=== PATIENT | female | born 1980 | race Asian ===

== ENCOUNTER 2024-07-03 04:37 | Emergency (ER) | payer OTHER, SELFPAY ==
[2024-07-03 04:38] VITALS: BMI 31.8
[2024-07-03 04:51] VITALS: BP 125/84; PULSE 85; RESP 17; TEMP 36.4; O2SAT 96
--- NOTE | 2024-07-03 04:58 | XR_ITS ---
Examination: CT abdomen with intravenous contrast CT pelvis with intravenous contrast 2-D coronal reconstructions 2-D sagittal reconstructions Date and time of exam:July 03, 2023 at 0734 hrs. Comparison 03/03/2022. Indications: Lower abdominal pain and constipation beginning 3 days ago, history small bowel obstruction.. CTDI: vol (mGy) 9.61 DLP: (mGycm) 533 Technique: Multiple axial sections of the abdomen and pelvis have been obtained. 64 slice high-resolution scanner used. 3 mm axial sections have been obtained, post intravenous injection 60 cc Isovue-370. 2-D sagittal, coronal reconstructions obtained. Low dose protocols were performed. One or more of the following dose reduction techniques were used; automated exposure control, adjustment of the mA and/or KV according to patient size, use of iterative reconstruction technique. Findings: Splenic cyst again noted Fatty infiltration throughout the liver Contracted gallbladder No pancreatic mass. Moderate bilateral renal parenchymal scar formation. Normal appendix. Multiple fluid distended small bowel loops, no free air No hernia defect 3 cm left ovarian cyst. Urinary bladder shows mild wall thickening The osseous structures are intact. Impression: Small bowel obstruction pattern Recommend Gastrografin small bowel series follow-up
--- NOTE | 2024-07-03 04:58 | PD.EDRME ---
Rapid Medical Screening Exam RME Arrival date/time: 07/03/24 04:37 43 year old female present to Ed for c/o of abd pain for 1 day , hx of sbo I have greeted and performed a focused initial assessment of this patient. A comprehensive ED assessment and evaluation of the patient, analysis of all test results, and completion of the medical decision making process will be conducted by additional ED providers. Chief Complaint: Abdominal Pain Time Seen by Provider: 07/03/24 04:39 Vital signs: Vital Signs Temperature 97.5 F 07/03/24 04:51 Pulse Rate 85 07/03/24 04:51 Respiratory Rate 17 07/03/24 04:51 Blood Pressure 125/84 07/03/24 04:51 Pulse Oximetry (%) 96 07/03/24 04:51 Oxygen Delivery Method Room Air 07/03/24 04:51
[2024-07-03 06:12] LABS: Basophils # (Auto) 0.1 Thou/mm3 (0.0-0.2); Basophils % (Auto) 0 % (0-2.5); Eosinophils # (Auto) 0.2 Thou/mm3 (0.0-0.5); Eosinophils % (Auto) 1 % (0-10); Hematocrit 42.6 % (36.0-46.0); Hemoglobin 14.6 g/dL (12.0-16.0); Immature Granulocytes % (Auto) 1 % (0-0); Immature Granulocytes Auto 0.13 Thou/mm3 (0.00-0.00); Lymphocytes # (Auto) 3.3 Thou/mm3 (1.0-4.8); Lymphocytes % (Auto) 18 % (10-50); Mean Corpuscular HGB Conc 34.3 g/dl (31.0-37.0); Mean Corpuscular Hemoglobin 29.1 pg (25.0-35.0); Mean Corpuscular Volume 85 fL (80-100); Monocytes # (Auto) 1.1 Thou/mm3 (0.0-0.8); Monocytes % (Auto) 6 % (0-12); Neutrophils # (Auto) 13.3 Thou/mm3 (1.8-7.7); Neutrophils % (Auto) 74 % (37-80); Nucleated Red Blood Cell % 0 /100 WBC (0); Platelet Count 313 Thou/mm3 (140-440); RDW Standard Deviation 35.6 fL (36.4-46.3); Red Blood Count 5.01 Miln/mm3 (4.00-5.20); White Blood Count 18.1 Thou/mm3 (3.6-11.0)
[2024-07-03 06:34] LABS: Alanine Aminotransferase 13 U/L (10-49); Albumin, Serum 4.7 gm/dL (3.5-5.0); Albumin/Globulin Ratio 1.3 (1.2-2.2); Alkaline Phosphatase 66 U/L (46-116); Anion Gap 9 (7-16); Aspartate Amino Transferase 11 U/L (0-34); BUN/Creatinine Ratio 21 Ratio (12-20); Blood Urea Nitrogen 21 mg/dL (9-23); Calcium 10.1 mg/dL (8.3-10.6); Calcium (Corrected) 10.1 mg/dL (8.5-10.1); Carbon Dioxide 28.2 mMol/L (20.0-31.0); Chloride 97 mMol/L (98-107); Estimated Creatinine Clearance 71.9 mL/min (>60); Globulin 3.7 gm/dL (2.3-3.5); Glucose 278 mg/dL (74-106); Lipase 71 U/L (12-53); Osmolality,Calculated 281 (275-295); Potassium 4.1 mMol/L (3.4-5.1); Sodium 134 mMol/L (136-145); Total Protein 8.4 gm/dL (5.7-8.2); eGFR > 60 See Note
[2024-07-03 07:20] LABS: HCG,Qualitative Serum Negative
[2024-07-03 07:21] LABS: Collection Type, Urine Clean Catch
[2024-07-03 07:57] LABS: Bacteria,Urine 3+; Bilirubin,Urine Negative (Negative); Blood,Urine Negative (Negative); Clarity,Urine Clear (Clear/Hazy); Color,Urine Yellow (Lt Yel-Yel); Glucose, Urine 4+ (Negative); Hyaline Casts,Urine < 1 /hpf (0-1); Ketones,Urine Negative (Negative); Leukocyte Esterase,Urine Positive (Negative); Nitrite,Urine Positive (Negative); PH,Urine 6.5 (5.0-7.0); Protein,Urine 1+ (Neg - Trace); RBC,Urine 1 /hpf (0-3); Specific Gravity,Urine 1.024 (1.001-1.035); Squamous Epithelial Cell,Urine 2 /hpf (0-5); Urobilinogen,Urine Negative mg/dL (0.0-1.0); WBC,Urine 15 /hpf (0-5)
[2024-07-03 07:58] LABS: Culture Indicated,Urine Yes
[2024-07-03 08:02] VITALS: BP 130/89; PULSE 82; RESP 16; TEMP 36.6; O2SAT 97
--- NOTE | 2024-07-03 08:02 | EDNOTE_ITS ---
<Statement entered by Tasha Reese MD - 07/04/24 09:18> As co-signing physician, I was present and available for consult prn. I concur with the plan and care as documented by the midlevel provider. ED Abdominal Pain RME/HPI General Chief Complaint: Abdominal Pain Stated complaint: STOMACH PAIN Time seen by provider: 07/03/24 04:39 Arrival date/time: 07/03/24 04:37 43-year-old female with history significant for diabetes, hypertension currently on Ozempic presents e to the emergency department today complains of lower abdominal pain Limitations: no limitations RME / HPI RME / HPI narrative: 07/03/24 04:37 43 year old female present to Ed for c/o of abd pain for 1 day , hx of sbo I have greeted and performed a focused initial assessment of this patient. A comprehensive ED assessment and evaluation of the patient, analysis of all test results, and completion of the medical decision making process will be conducted by additional ED providers. Related Data Home Medications ?Medication ?Instructions ?Recorded ?Confirmed benazepril 20 1 tab PO QDAY 05/20/18 04/20/24 mg-hydrochlorothiazide 12.5 mg tablet glimepiride 2 mg tablet 2 mg PO BID 06/18/20 04/20/24 atorvastatin 10 mg tablet 10 mg PO DAILY 04/20/24 04/20/24 insulin glargine U-300 conc 300 26 unit subcut DAILY 04/20/24 04/20/24 unit/mL (3 mL) subcutaneous pen (Toujeo Max U-300 SoloStar) metoprolol succinate 100 mg 100 mg PO DAILY 04/20/24 04/20/24 tablet,extended release 24 hr semaglutide 2 mg/dose (8 mg/3 mL) 2 mg subcut QWEEK 04/20/24 04/20/24 subcutaneous pen injector (Ozempic) Previous Rx's ?Medication ?Instructions ?Recorded ciprofloxacin HCl 500 mg tablet 500 mg PO BID 7 days #14 tabs 07/03/24 Allergies Allergy/AdvReac Type Severity Reaction Status Date / Time No Known Allergies Allergy Verified 07/03/24 04:39 Review of Systems Review of Systems Systems Reviewed: All systems reviewed, normal except as documented Constitutional Constitutional: Reports system reviewed and no additional complaints, except as documented, Denies fever(s) and Denies headache(s) Eyes Eyes: Reports system reviewed and no additional complaints, except as documented and Denies blurry vision ENT Ears, Nose, Mouth, and Throat: Reports system reviewed and no additional complaints, except as documented, Denies headache(s), Denies nasal congestion and Denies nasal discharge Cardiovascular Cardiovascular: Reports system reviewed and no additional complaints, except as documented, Denies chest pain and Denies dyspnea Respiratory Respiratory: Reports system reviewed and no additional complaints, except as documented, Denies chest congestion, Denies cough and Denies dyspnea Gastrointestinal Gastrointestinal: Reports system reviewed and no additional complaints, except as documented, Reports abdominal pain, Reports loose stools, Denies nausea and Denies vomiting Integumentary/Breasts Skin/Breast: Reports system reviewed and no additional complaints, except as documented and Denies rash Neurologic Neurologic: Reports system reviewed and no additional complaints, except as documented, Reports as per HPI and Denies headache(s) Past Medical History Past Medical History NEUROLOGIC: Negative Neurological Disorders CARDIAC: Negative Cardiac Disorders ED Exam General Limitations: Present no limitations General appearance: Present alert and in no apparent distress Head Head exam: Present atraumatic, normocephalic and normal inspection Eye Eye exam: Present normal appearance, PERRL and EOMI; Absent conjunctival injection ENT ENT exam: Present normal exam, normal oropharynx and mucous membranes moist Neck Neck exam: Present normal inspection, full ROM and trachea midline Chest Chest inspection: Present normal inspection and symmetric chest wall rise Respiratory Respiratory exam: Present normal lung sounds bilaterally; Absent respiratory distress Cardiovascular Cardiovascular exam: Present regular rate, normal rhythm and normal heart sounds Abdominal Exam Abdominal exam: Present soft, tenderness and normal bowel sounds; Absent distention, guarding, rebound or rigidity Abdominal tenderness: Present LLQ and mild Extremities Exam Extremities exam: Present normal inspection and full ROM Back Exam Back exam: Present normal inspection and full ROM Neurological Exam Neurological exam: Present alert, oriented X3 and CN II-XII intact Psychiatric Psychiatric exam: Present normal affect and normal mood Skin Skin exam: Present warm, dry, intact and normal color Course Quality Measures none Orders Category Date Time Status CT Screening NOW Care 07/03/24 04:59 Active IV [Insert IV] STAT Care 07/03/24 04:[address] abdomen pelvis w con Stat Exams 07/03/24 04:58 Completed CBC Stat Lab 07/03/24 05:52 Completed CMP [Comprehensive Metabolic Panel] Stat Lab 07/03/24 05:52 Completed HCG,Qualitative Serum Stat Lab 07/03/24 05:52 Completed Lipase Stat Lab 07/03/24 05:52 Completed UA, C/S IF [Urinalysis, C/S if Indicated] Stat Lab 07/03/24 07:10 Completed Urine Culture Stat Lab 07/03/24 07:10 Received Vital Signs Vital signs: Vital Signs Temperature 97.5 F 07/03/24 04:51 Pulse Rate 85 07/03/24 04:51 Respiratory Rate 17 07/03/24 04:51 Blood Pressure 125/84 07/03/24 04:51 Pulse Oximetry (%) 96 07/03/24 04:51 Oxygen Delivery Method Room Air 07/03/24 04:51 O2 saturation 96% on room air within normal limits Abdominal Pain MDM MDM Narrative MDM Narrative:: 43-year-old female with history significant for diabetes, hypertension currently on Ozempic presents e to the emergency department today complains of lower abdominal pain On exam patient well-appearing patient does not appear ill or toxic in no acute distress Lab work as well as CT scan ordered by my colleague Lab work and CT scan reviewed by me UA consistent with UTI Per the radiologist patient has bowel obstruction type pattern clinically patient does not have a bowel obstruction patient has no abdominal pain has no vomiting and is passing gas and having stools Consultation: I spoke with Dr. Abdullahi general surgeon who feels patient be discharged home without treatment for this As patient has no abdominal pain no nausea no vomiting patient be discharged home at this time with a prescription for antibiotics Patient reports that she had 3 bowel movements since this happened Patient discharged home in no distress to follow-up with primary care doctor in the next 24 to 48 hours and for any worsening symptoms to return to the ER immediately Patient data External records reviewed:: [facility] previous records Clinical information provided by:: patient Social determinants that could affect healthcare access:: none Patient has the following chronic illnesses:: See history How is presenting disease/condition affected by chronic disease/condition?: exacerbated by Evaluation data The following diagnostics were reviewed and interpreted by me:: lab results and radiology exam(s) Lab and/or radiology exams considered but not ordered:: Labs and radiology obtained Interpretation Summary: Reviewed by me Medications / Prescriptions Medications or Prescriptions considered but not ordered:: Given Medication administrations:: Given Consultations Consultation(s) initiated? (list below): Yes Consultation #1 (Physician, Specialty, Details): Dr Abdullahi Diagnosis Differential diagnosis abdominal pain: abdominal pain, acute appendicitis, diverticulitis, gastroenteritis, pancreatitis and small bowel obstruction Most likely diagnosis given after review of the tests above:: Abdominal pain Admission Indicated Admission indicated?: not indicated Admission Request Was there a request for admission?: No Disposition Plan Disposition Plan: Discharge Discharge Attestation Discharge Attestation: The patient and all family members were given an opportunity to ask questions and understood the discharge instructions. Discharge instructions specifically effects, indications for sooner follow up or return to the emergency department, and the expected course of current diagnosis. Patient condition: Stable Discharge Plan Plan Patient Disposition: HOME (Self Care) Disposition Comment: Stable Prescriptions/Referrals Prescriptions/Med Rec: New ciprofloxacin HCl 500 mg tablet 500 mg PO BID 7 Days Qty: 14 0RF No Action benazepril-hydrochlorothiazide 20-12.5 mg Tablet 1 tab PO QDAY glimepiride 2 mg tablet 2 mg PO BID Patient Comments: TAKE 1 TABLET BY MOUTH TWICE DAILY atorvastatin 10 mg tablet 10 mg PO DAILY metoprolol succinate 100 mg tablet extended release 24 hr 100 mg PO DAILY Patient Comments: TAKE 1 TABLET BY MOUTH ONCE DAILY insulin glargine U-300 conc [Toujeo Max U-300 SoloStar] 300 unit/mL (3 mL) insulin pen 26 unit SUBCUT DAILY Patient Comments: INJECT 14 UNITS SUBCUTANEOUSLY ONCE DAILY Ozempic 2 mg/dose (8 mg/3 mL) pen injector 2 mg SUBCUT QWEEK Patient Comments: INJECT 2MG SUBCUTANEOUSLY ONCE A WEEK Referrals: Christiano Izaguirre MD [Primary Care Provider] - In 1 week Problem List Clinical Impression: Abdominal pain, UTI (urinary tract infection) Patient/Caregiver Discharge Instructions Education Materials: Abdominal Pain Additional Instructions: Please follow up with your primary care doctor in the next 24-48hrs for any worsening symptoms return here immediately Print Language: [place] Stand Alone Forms: Madai Award Info., Patient Portal Info Letter PA/LINE LEADER Supervising Physician PA/LINE LEADER Supervising Physician: Dr. Reese
== END 2024-07-03 09:00 | disposition home or self-care (01) ==
PROVIDERS: Nurse Practitioner Primary Care; Physician Assistant; Emergency Provider Emergency Medicine; PCP Internal Medicine
DX: N39.0 Urinary tract infection, site not specified (principal); E11.9 Type 2 diabetes mellitus without complications; I10 Essential (primary) hypertension
CPT/HCPCS: 36415; 74177; 81001; 83690; 84703; 85025; 87077; 87086; 87186; 99285; A4649; Q9967

== ENCOUNTER → 2024-07-10 | Outpatient (CLI) | payer OTHER, SELFPAY ==
[2024-07-10 07:58] LABS: Collection Type, Urine Clean Catch
[2024-07-10 08:52] LABS: Basophils # (Auto) 0.1 Thou/mm3 (0.0-0.2); Basophils % (Auto) 1 % (0-2.5); Eosinophils # (Auto) 0.3 Thou/mm3 (0.0-0.5); Eosinophils % (Auto) 3 % (0-10); Immature Granulocytes % (Auto) 1 % (0-0); Immature Granulocytes Auto 0.07 Thou/mm3 (0.00-0.00); Lymphocytes # (Auto) 4.5 Thou/mm3 (1.0-4.8); Lymphocytes % (Auto) 35 % (10-50); Mean Corpuscular HGB Conc 34.2 g/dl (31.0-37.0); Mean Corpuscular Hemoglobin 29.5 pg (25.0-35.0); Mean Corpuscular Volume 86 fL (80-100); Monocytes # (Auto) 0.7 Thou/mm3 (0.0-0.8); Monocytes % (Auto) 5 % (0-12); Neutrophils # (Auto) 7.2 Thou/mm3 (1.8-7.7); Neutrophils % (Auto) 56 % (37-80); Nucleated Red Blood Cell % 0 /100 WBC (0); Platelet Count 295 Thou/mm3 (140-440); RDW Standard Deviation 37.5 fL (36.4-46.3); White Blood Count 12.9 Thou/mm3 (3.6-11.0)
[2024-07-10 08:53] LABS: Glucose Estimated Average 212 mg/dL (80-131)
[2024-07-10 09:02] LABS: Anion Gap 11 (7-16); Blood Urea Nitrogen 16 mg/dL (9-23); Carbon Dioxide 24.9 mMol/L (20.0-31.0); Chloride 101 mMol/L (98-107); Potassium 3.8 mMol/L (3.4-5.1); Sodium 137 mMol/L (136-145)
[2024-07-10 09:03] LABS: Alanine Aminotransferase 15 U/L (10-49); Albumin, Serum 4.4 gm/dL (3.5-5.0); Albumin/Globulin Ratio 1.4 (1.2-2.2); Alkaline Phosphatase 52 U/L (46-116); Aspartate Amino Transferase 15 U/L (0-34); BUN/Creatinine Ratio 16 Ratio (12-20); Bilirubin,Total 1.7 mg/dL (0.3-1.2); Calcium 9.4 mg/dL (8.3-10.6); Calcium (Corrected) 9.4 mg/dL (8.5-10.1); Cardiac Risk Estimate 3.1 RATIO (3.7-5.6); Cholesterol 122 mg/dL (132-200); Globulin 3.2 gm/dL (2.3-3.5); Glucose 179 mg/dL (74-106); HDL Cholesterol 40 mg/dL (40-60); LDL Cholesterol,Calculated 50 mg/dL (0-130); Osmolality,Calculated 279 (275-295); Total Protein 7.6 gm/dL (5.7-8.2); Triglycerides 162 mg/dL (30-150); eGFR > 60 See Note
[2024-07-10 09:23] LABS: Bacteria,Urine 2+; Bilirubin,Urine Negative (Negative); Blood,Urine Negative (Negative); Clarity,Urine Clear (Clear/Hazy); Color,Urine Lt-Yellow (Lt Yel-Yel); Glucose, Urine Negative (Negative); Ketones,Urine Negative (Negative); Leukocyte Esterase,Urine Negative (Negative); Nitrite,Urine Negative (Negative); PH,Urine 5.5 (5.0-7.0); Protein,Urine Negative (Neg - Trace); RBC,Urine 3 /hpf (0-3); Specific Gravity,Urine 1.012 (1.001-1.035); Squamous Epithelial Cell,Urine < 1 /hpf (0-5); Urobilinogen,Urine Negative mg/dL (0.0-1.0); WBC,Urine 2 /hpf (0-5)
[2024-07-10 09:28] LABS: Creatinine MALB Rnd Ur 64 mg/dL (30-125); Microalbumin Creat Ratio 6 mg/gCrea (<30); Microalbumin, Random Urine 4 mg/L (0-300)
== END | disposition home or self-care (01) ==
LOC: COPL 07:05
PROVIDERS: PCP Internal Medicine; Referring Provider Internal Medicine; Visit Provider Internal Medicine
DX: E11.9 Type 2 diabetes mellitus without complications (principal); I10 Essential (primary) hypertension; E78.5 Hyperlipidemia, unspecified
CPT/HCPCS: 36415; 80053; 80061; 81001; 82043; 82570; 83036; 85025

== ENCOUNTER → 2024-09-17 | Outpatient (CLI) | payer OTHER, SELFPAY ==
[2024-09-17 15:32] LABS: Basophils # (Auto) 0.1 Thou/mm3 (0.0-0.2); Basophils % (Auto) 1 % (0-2.5); Eosinophils # (Auto) 0.3 Thou/mm3 (0.0-0.5); Eosinophils % (Auto) 2 % (0-10); Hematocrit 40.7 % (36.0-46.0); Hemoglobin 13.9 g/dL (12.0-16.0); Immature Granulocytes % (Auto) 0 % (0-0); Immature Granulocytes Auto 0.05 Thou/mm3 (0.00-0.00); Lymphocytes % (Auto) 30 % (10-50); Mean Corpuscular HGB Conc 34.2 g/dl (31.0-37.0); Mean Corpuscular Hemoglobin 29.2 pg (25.0-35.0); Mean Corpuscular Volume 86 fL (80-100); Monocytes % (Auto) 7 % (0-12); Neutrophils # (Auto) 7.8 Thou/mm3 (1.8-7.7); Neutrophils % (Auto) 59 % (37-80); Nucleated Red Blood Cell % 0 /100 WBC (0); Platelet Count 320 Thou/mm3 (140-440); RDW Standard Deviation 36.6 fL (36.4-46.3); Red Blood Count 4.76 Miln/mm3 (4.00-5.20); White Blood Count 13.2 Thou/mm3 (3.6-11.0)
[2024-09-17 15:42] LABS: Glucose Estimated Average 194 mg/dL (80-131); Hemoglobin A1C 8.4 % Hgb (4.8-6.0)
[2024-09-17 15:55] LABS: Follicle Stimulating Hormone 4.31 mIU/mL (See Note)
[2024-09-17 15:56] LABS: Alanine Aminotransferase 17 U/L (10-49); Albumin, Serum 4.4 gm/dL (3.5-5.0); Albumin/Globulin Ratio 1.3 (1.2-2.2); Alkaline Phosphatase 59 U/L (46-116); Anion Gap 9 (7-16); Aspartate Amino Transferase 16 U/L (0-34); BUN/Creatinine Ratio 22 Ratio (12-20); Beta HCG,Quantitative 1 mIU/mL (<5.0); Bilirubin,Total 1.9 mg/dL (0.3-1.2); Blood Urea Nitrogen 22 mg/dL (9-23); Calcium 9.7 mg/dL (8.3-10.6); Calcium (Corrected) 9.7 mg/dL (8.5-10.1); Chloride 98 mMol/L (98-107); Free T4 (Free Thyroxine) 1.33 ng/dL (0.89-1.76); Globulin 3.5 gm/dL (2.3-3.5); Glucose 173 mg/dL (74-106); Osmolality,Calculated 277 (275-295); Potassium 3.9 mMol/L (3.4-5.1); Sodium 135 mMol/L (136-145); Thyroid Stimulating Hormone 1.48 uIU/mL (0.55-4.78); Total Protein 7.9 gm/dL (5.7-8.2); eGFR > 60 See Note
[2024-09-28 06:49] LABS: DHEA Sulfate* 52 mcg/dL (19-231); Estrogen, Total, Serum* 734 pg/mL; Luteinizing Hormone* 3.3 mIU/mL; Progesterone,LC/MS* <0.1 ng/mL; Prolactin* 12.5 ng/mL; Testosterone, Free,Dialysis 2.8 pg/mL (0.1-6.4); Testosterone, Total, Dialysis 19 ng/dL (2-45)
== END | disposition home or self-care (01) ==
LOC: COPL 14:49
PROVIDERS: PCP Internal Medicine; Referring Provider Specialist; Visit Provider Specialist
DX: N93.9 Abnormal uterine and vaginal bleeding, unspecified (principal)
CPT/HCPCS: 36415; 80053; 82627; 82672; 83001; 83002; 83036; 84144; 84146; 84402; 84403; 84439; 84443; 84702; 85025

== ENCOUNTER → 2024-11-05 | Outpatient (CLI) | payer OTHER, SELFPAY ==
[2024-11-06 08:39] LABS: BVAG Candida Negative (Negative); Bacterial Vaginosis Markers Negative (Negative); Candida glabrata Negative (Negative); Candida krusei PCR Negative (Negative); Trichomonas Positive (Negative)
== END | disposition home or self-care (01) ==
PROVIDERS: Referring Provider Specialist; Visit Provider Specialist
DX: B37.89 Other sites of candidiasis (principal); N76.0 Acute vaginitis; A59.01 Trichomonal vulvovaginitis
CPT/HCPCS: 81514

== ENCOUNTER 2025-05-11 07:30 | Day surgery (SDC) | payer OTHER, SELFPAY ==
--- NOTE | 2025-05-05 08:44 | ESHP_ITS ---
RE: MARYURI HOLLIDAY : 1980 DATE OF ADMISSION: 05/11/2025 DATE OF SURGERY: 05/11/2025 HISTORY OF PRESENT ILLNESS: This is a 44-year-old 0, para 0, with abnormal uterine bleeding who presents for endometrial ablation. ALLERGIES: NO KNOWN DRUG ALLERGIES. MEDICATIONS: 1. Atorvastatin 10 mg 1 p.o. daily. 2. Metoprolol 100 mg 1 p.o. daily. 3. Ozempic 1 mg subcutaneous weekly. 4. Toujeo 300 units subcutaneous daily. SOCIAL HISTORY: She denies any alcohol, drug use, or smoking. PAST MEDICAL HISTORY: Hypertension, hyperlipidemia, diabetes type 2. PAST SURGICAL HISTORY: Denies. FAMILY HISTORY: Colon cancer, lymphoma. REVIEW OF SYSTEMS: She denies any chest pain, palpitations, cough, fever, flank pain, shortness of breath, or lower extremity pain. PHYSICAL EXAMINATION: VITAL SIGNS: Blood pressure is 122/84, heart rate 88, respirations 18, temperature is 98.4. HEENT: Oropharynx and sclerae are clear. LUNGS: Clear to auscultation bilaterally. HEART: Regular rate and rhythm. ABDOMEN: Nontender. EXTREMITIES: Nontender. SKIN: No gross rashes or lesions. NEUROLOGIC: No focal deficit. ASSESSMENT: Abnormal uterine bleeding. PLAN: Hysteroscopy, fractional dilatation and curettage, and NovaSure endometrial ablation. Patient was made aware of the risks, complications, alternatives, and benefits of the proposed procedure and she agrees. She is aware of the risk of injury to bowel, bladder, uterus, pulmonary embolism, deep vein thrombosis, pelvic infection, reoperation to repair injury to internal organs, anesthesia complications, the possibility that a laparotomy needs to be performed to repair organs or control bleeding, and the possibility the procedure is not able to be completed due to severe adhesions or technical difficulties. DT: 07:39:13 TT: 08:38:00 Ref: [id number] - TID: [id number] MTDD
--- NOTE | 2025-05-10 06:00 | EKG_ITS ---
[facility] Test Date: 2025-05-10 Pat Name: MARYURI HOLLIDAY Department: Room: - Gender: Female Integration Consultant: GILBelle : 1980 Requested By: Jose Booker Order Number: [id number] Reading MD: Jose Booker Measurements Intervals [place] Rate: 83 P: 56 AR: 152 QRS: -55 QRSD: 106 T: 25 QT: 410 QTc: 484 Interpretive Statements SINUS RHYTHM LOW QRS VOLTAGE IN PRECORDIAL LEADS [QRS DEFLECTION < 1.0 mV IN CHEST LEADS] LEFT ANTERIOR FASCICULAR BLOCK [QRS AXIS <= -45, QR IN I, RS IN II] POSSIBLE ANTERIOR MYOCARDIAL INFARCTION , OF INDETERMINATE AGE [30 ms Q WAVE IN V3/V4, OR R < 0.2 mV IN V4] Compared to ECG 10/23/2021 09:04:03 Low QRS voltage now present Left anterior fascicular block now present Myocardial infarct finding now present Sinus arrhythmia no longer present Left-axis deviation no longer present /store/S0/[id number]/ecg/[id number].pdf
[2025-05-10 08:22] VITALS: BMI 31.9
[2025-05-10 10:26] LABS: Basophils # (Auto) 0.1 Thou/mm3 (0.0-0.2); Basophils % (Auto) 1 % (0-2.5); Eosinophils # (Auto) 0.3 Thou/mm3 (0.0-0.5); Eosinophils % (Auto) 3 % (0-10); Hematocrit 41.8 % (36.0-46.0); Hemoglobin 14.0 g/dL (12.0-16.0); Immature Granulocytes Auto 0.06 Thou/mm3 (0.00-0.00); Lymphocytes # (Auto) 2.7 Thou/mm3 (1.0-4.8); Lymphocytes % (Auto) 30 % (10-50); Mean Corpuscular HGB Conc 33.5 g/dl (31.0-37.0); Mean Corpuscular Hemoglobin 29.5 pg (25.0-35.0); Mean Corpuscular Volume 88 fL (80-100); Monocytes # (Auto) 0.7 Thou/mm3 (0.0-0.8); Monocytes % (Auto) 8 % (0-12); Neutrophils # (Auto) 5.2 Thou/mm3 (1.8-7.7); Neutrophils % (Auto) 58 % (37-80); Nucleated Red Blood Cell # 0.00 Thou/mm3 (0.00-0.00); Nucleated Red Blood Cell % 0 /100 WBC (0); Platelet Count 276 Thou/mm3 (140-440); RDW Standard Deviation 37.3 fL (36.4-46.3); Red Blood Count 4.75 Miln/mm3 (4.00-5.20); White Blood Count 9.0 Thou/mm3 (3.6-11.0)
[2025-05-10 10:39] LABS: Alanine Aminotransferase 13 U/L (10-49); Albumin, Serum 4.6 gm/dL (3.5-5.0); Albumin/Globulin Ratio 1.4 (1.2-2.2); Alkaline Phosphatase 61 U/L (46-116); Anion Gap 10 (7-16); Aspartate Amino Transferase 15 U/L (0-34); BUN/Creatinine Ratio 15 Ratio (12-20); Beta HCG,Quantitative < 1 mIU/mL (<5.0); Bilirubin,Total 2.2 mg/dL (0.3-1.2); Blood Urea Nitrogen 15 mg/dL (9-23); Calcium 9.2 mg/dL (8.3-10.6); Calcium (Corrected) 9.2 mg/dL (8.5-10.1); Carbon Dioxide 28.7 mMol/L (20.0-31.0); Chloride 97 mMol/L (98-107); Creatinine (Component) 1.0 mg/dL (0.6-1.3); Estimated Creatinine Clearance 71.2 mL/min (>60); Globulin 3.4 gm/dL (2.3-3.5); Glucose 300 mg/dL (74-106); Osmolality,Calculated 283 (275-295); Potassium 3.8 mMol/L (3.4-5.1); Sodium 136 mMol/L (136-145); Total Protein 8.0 gm/dL (5.7-8.2); eGFR > 60 See Note
[2025-05-10 10:42] LABS: INR 1.0 (0.9-1.3); Partial Thromboplastin Time 29.5 Seconds (22.0-36.0); Prothrombin Time 10.6 Seconds (9.0-12.2)
[2025-05-11] VITALS (7 sets, daily range): BP systolic 115–135; BP diastolic 75–90; PULSE 65–96; RESP 13–20; TEMP 36.2–36.3; O2SAT 95–100; BMI 31.9
[2025-05-11] MEDS: SODIUM CHLORIDE 0.9% 1000 ML 1,000 ML 999 ML IV (08:37)
--- NOTE | 2025-05-11 09:30 | CHAP ---
Visited with patient and gave encouragement and prayer.
--- NOTE | 2025-05-11 10:50 | SUR.PHASEI ---
pt received from OR in recovery bay 3. pt asleep but responds to voice, breathing unlabored on oxymask 5l. v/s stable. pt dressing peripad cdi. report received from Ce Fuller and Jose BUTLER.
--- NOTE | 2025-05-11 11:22 | SUR.PHASEI ---
pt able to tolerate oral fluids without difficulty swallowing or nausea/vomiting.
--- NOTE | 2025-05-11 11:52 | SUR.PHASEII ---
pt awake and alert, breathing unlabored on room air. v/s stable. pt dressing peripad cdi. pt able to ambulate to wheelchair with steady gait. d/c instructions given with s/o Terry in room, all questions answered. pt d/c via wheelchair with all belongings.
--- NOTE | 2025-05-11 14:47 | ESOP_ITS ---
Operative Note - BOAT RENTAL CLERK Procedure Date of procedure: 05/11/25 Procedure Performed: Hysteroscopy Myosure Removal of Endometrial Polyps Fractional Dilation and Curettage Novasure Endometrial Ablation. Indication: Abnomal Uterine Bleeding Pre-Op diagnosis: Abnormal Uterine Bleeding Post-Op diagnosis: Abnormal Uterine Bleeding Due to Endometrial Polyps Anesthesia type: General Procedure description: After proper informed consent was obtained and the patient made aware of the risk complications alternatives and benefits of the proposed procedure she was taken to the operating room where she underwent induction of general anesthesia.? She was placed in the dorsal lithotomy position and prepped and draped the usual sterile fashion.? A timeout was performed.? A bivalve speculum was inserted.? A single-tooth tenaculum was used to grasp he anterior lip of the cervix.? The uterine cavity was sounded to 7.0 cm.?The cervix measured 3.0 cm. The cervix was dilated to accommodate the 5.5 mm Omni hysteroscope.? Using the Aquilex system and normal saline as the distending media the hysteroscopy was performed and a two, 5 x 5 mm endometrial polyps was seen on the anterior and posterior uterine cavity.? Using the MyoSure Reach device the polypectomies were performed and specimens sent to pathology. The fluid deficit at the end of the MyoSure procedure was 25 cc.? The endocervix was curetted with the Kevorkian curette and specimen sent to pathology.? The uterine cavity was curetted with a 5 mm curette and specimen sent to pathology.? The NovaSure catheter was plugged into the controller.? It went through its purge cycle.? The array was deployed and was found to be complete and intact with the width meter working properly. The Novasure catheter was appropriately seated in the uterine cavity.? The cavity length was 7.0 cm, ?the cavity width was 2.6 cm the power setting was 57 W.? The carbon dioxide cavity integrity assessment test was performed.? The uterine cavity was intact.? The controller was enabled and the ablation was performed for a total of 120 seconds before the controller shut off.? The array was retracted into the sheath and the catheter was removed from the uterine cavity.? The array was redeployed and found to be complete and intact.? There was bleeding at the anterior lip of the cervix at the site of the tenaculum and using the Bovie cautery hemostasis was achieved.? There was no bleeding at the end of the procedure.? All instruments were removed from the vagina.? She was reversed from general anesthesia in supine position and transferred to the cover room in stable condition.? She tolerated the procedure well.? Counts were correct.? I discussed with the patient's boyfriend Tiburcio the nature of her condition, the intraoperative findings, the expectation for recovery, all questions answered. Specimen: other (1. Endometrial polyps 2. Endocervical Curettings 3. Endometrial Curettings) Estimated blood loss (ml): 3 Findings: Two small endometial polylps in the uterine cavity 5 x 5 mm Uterus sounds to 7.0 cm anteverted Cervical length 3.0 cm Uterine cavity length 4.0 cm. Uterine cavity width 2.6 cm. Power Setting 57 Mar Duration of ablation 120 seconds. Complications: none Surgical staff Operation Date: 05/11/25 09:50 Case Staff EXPLOSIVE ORDNANCE HANDLER: Tommie Pimentel Dr., Surgeon Diagnosis Discharge Diagnosis (1) Abnormal uterine bleeding due to endometrial polyp: Status: Acute (2) Status post endometrial ablation: Status: Acute Problem List Completed Was Problem List Reviewed/Reconciled?: Yes
== END 2025-05-11 11:52 | disposition home or self-care (01) ==
PROVIDERS: PCP Internal Medicine; Referring Provider Specialist; Visit Provider Specialist
PROC: 0U5B8ZZ Destruction of Endometrium, Via Natural or Artificial Opening Endoscopic (ICD-10-PCS; CPT 58563; principal; 2025-05-11 09:45)
DX: N84.0 Polyp of corpus uteri (principal); Z01.810 Encounter for preprocedural cardiovascular examination
CPT/HCPCS: 58563; 36415; 80053; 84702; 85025; 85610; 85730; 86850; 86900; 86901; 87070; 87205; 93005; A4217; A4649; J0131; J0690; J2250; J2704; J2765; J3010; J3490; J7030